=== PATIENT | male | born 1955 | race Caucasian/White ===

== ENCOUNTER 2020-10-26 11:52 | Emergency (ER) | payer SELFPAY ==
[2020-10-26 13:24] VITALS: BP 129/93; PULSE 85; RESP 18; TEMP 36.8; O2SAT 96
--- NOTE | 2020-10-26 13:32 | PC.NURSE ---
Pt requesting to leave at the end of triage process prior to blood being drawn. Pt states I don't have time for this I have to go to work. I am not going to lose my job over this. I just came here to get my belly checked out. I'm not looking to have a psychiatric evaluation. dry cell tester and EDP made aware of what is going on and pts [place] suicide risk assessment. Emily rn first assistant out speaking with pt in triage area at this time.
--- NOTE | 2020-10-26 13:32 | PC.NURSE ---
Spoke with pt about the [place] scale and his risk. States he was honest with his answers and feels like today he is here for just his abd pain. He is not suicidal or homicidal however in the past he has attempted due to his divorce long time ago. He also has decided that he needs to get to work and doesn't want to be seen due to the wait
== END 2020-10-26 13:32 | disposition left against medical advice (07) ==
DX: R10.9 Unspecified abdominal pain (principal)
CPT/HCPCS: 99199

== ENCOUNTER 2020-12-10 14:50 | Emergency (ER) | payer OTHER, SELFPAY ==
[2020-12-10 15:02] VITALS: BP 140/94; PULSE 63; RESP 16; TEMP 37; O2SAT 100
--- NOTE | 2020-12-10 15:08 | ED.EAR ---
HPI - Ear Problem General Chief complaint: Ear Stated complaint: Possible Ear Infection in both Ears Time Seen by Provider: 12/10/20 15:09 Source: patient Mode of arrival: ambulatory Limitations: no limitations History of Present Illness HPI Narrative: Homer Roca is a 65 yo male with who comes with ear stuffiness. Went swimming in the pool 2 weeks ago and states that his ears have been somewhat muffled since then but is gotten continually worse, his right ear is now painful Related Data Home Medications Medication Instructions Recorded Confirmed pantoprazole 40 mg PO DAILY 12/10/20 12/10/20 Allergies Allergy/AdvReac Type Severity Reaction Status Date / Time No Known Allergies Allergy Verified 12/10/20 15:12 Review of Systems Review of Systems: Narrative: CONSTITUTIONAL: Denies fever, chills, sweats. EYES: Denies visual changes, redness, discharge. ENT: Denies rhinorrhea, congestion, sore throat, otalgia. Bilateral ear stuffiness CARDIOVASCULAR: Denies chest pain, palpitations, edema. RESPIRATORY: Denies dyspnea, wheezing, cough GASTROINTESTINAL: Denies abdominal pain, nausea, vomiting, diarrhea. GENITOURINARY: Denies dysuria, hematuria, abnormal discharge SKIN: Denies rash or itching. NEUROLOGIC: Denies numbness, or focal weakness. PSYCHIATRIC: Denies anxiety or depression. PMFSH Past Medical History Medical History HTN (hypertension) Family History Family History Other Heart disease Hypertension Social History Social History (Updated 12/10/20 @ 15:53 by Jie June CNP) Smoking status: Former smoker Alcohol intake: current Comments At time of signature, I agree with nursing past medical, surgical, social and family history. There is no relevant family history pertinent to the presenting complaint. Patient's blood pressure elevated at this visit should follow-up with PCP this week Exam Narrative: Exam Narrative: GENERAL: This is a well-nourished, well-developed patient, in mild distress. HEAD: normocephalic, atraumatic. EYES: Sclera clear/white. Vision is grossly intact. EARS: External ears normal, auditory canals dark wax against TM on right and without drainage, L TM normal without perforation. Hearing grossly intact. NOSE: External nose normal without nasal discharge, nares without redness, no rhinorrhea. THROAT: Mucous membranes moist, NECK: Neck supple, CARDIOVASCULAR: Regular rate and rhythm without murmurs, gallops, or rubs. RESPIRATORY: Clear to auscultation. Breath sounds equal bilaterally. No wheezes, rales, or rhonchi. GASTROINTESTINAL: Abdomen soft, SKIN: warm, intact with no suspicious lesions detected rash, good texture and turgor. NEURO: awake, alert, and oriented to person, place and time. There were no obvious focal neurologic abnormalities. Steady gait EXTREMITIES: Normal range of motion. BACK: Nontender without deformity Course Vital Signs Vital signs: Vital Signs Temperature 98.6 F 12/10/20 15:02 Pulse Rate 63 12/10/20 15:02 Respiratory Rate 16 12/10/20 15:02 Blood Pressure 140/94 H 12/10/20 15:02 Pulse Oximetry 100 12/10/20 15:02 Temperature 98.6 F 12/10/20 15:02 Pulse Rate 63 12/10/20 15:02 Respiratory Rate 16 12/10/20 15:02 Blood Pressure 140/94 H 12/10/20 15:02 Pulse Oximetry 100 12/10/20 15:02 Procedures Ear Wax Removal Right Ear: Ear Wax Removal Date: 12/10/20 Ear Wax Removal Time: 15:24 Cerumenolytic Used: other (peroxide/water) Results: Re-examined: some cerumen remains TM Examination: TM(s) intact, normal appearance Ear Canal Exam: atraumatic Patient Tolerated Procedure: well Technique: ear canal irrigated Medical Decision Making Differential Diagnosis Differential Diagnosis: Otitis media versus otitis externa versus earwax impaction
[2020-12-10] MEDS: ONDANSETRON HCL ODT 4 MG TABLET PO (16:02)
[2020-12-10] MEDS: MECLIZINE HCL 25 MG TABLET PO (16:09)
== END 2020-12-10 16:30 | disposition home or self-care (01) ==
PROVIDERS: Emergency Provider Nurse Practitioner
DX: H60.90 Unspecified otitis externa, unspecified ear (principal); H61.21 Impacted cerumen, right ear; Z87.891 Personal history of nicotine dependence; I10 Essential (primary) hypertension
CPT/HCPCS: 69209; 99213; A9270; G0463

== ENCOUNTER 2021-02-04 10:44 | Emergency (ER) | payer OTHER, SELFPAY ==
[2021-02-04 10:48] VITALS: BP 147/94; PULSE 62; RESP 14; TEMP 37.1; O2SAT 100
--- NOTE | 2021-02-04 11:05 | ED.ABDPAIN ---
HPI - Abdominal Pain General Chief Complaint: Abdominal Pain Stated Complaint: stomach pain Time Seen by Provider: 02/04/21 11:05 Source: patient and RN notes reviewed Mode of arrival: ambulatory Limitations: no limitations History of Present Illness HPI narrative: 65-year-old male presents with concern for pain periumbilical abdominal pain, diarrhea. Reports symptoms have been going on for many months, reports he has been seen by her primary care physician and been prescribed medicine for an ulcer. Reports he ran out of that medication and symptoms returned. He denies any vomiting, reports nausea. Reports diarrhea with one episode of black stool. Reports his primary care doctor ordered tests including a CT of his abdomen which he never got done. Reports he has missed several days of work since the beginning of the year for this problem. He reports decreased appetite, reports eating 1-1/2 big max yesterday without any subsequent vomiting or diarrhea. He denies any [id number] intervention. He denies fever, body aches, general malaise, abdominal tenderness. MD elicited complaint: abdominal pain Related Data Home Medications Medication Instructions Recorded Confirmed pantoprazole 40 mg PO DAILY 12/10/20 02/04/21 Allergies Allergy/AdvReac Type Severity Reaction Status Date / Time No Known Allergies Allergy Verified 02/04/21 10:57 Review of Systems Review of Systems: CONSTITUTIONAL: Denies malaise, chills, sweats, or fever. ENT: Denies rhinorrhea, congestion, sinus pain, otalgia or sore throat. CARDIOVASCULAR: Denies chest pain, palpitations, or edema. RESPIRATORY: Denies cough or dyspnea. GASTROINTESTINAL: Reports periumbilical abdominal pain, nausea, diarrhea, episode of dark-colored blood streaks stool. Denies vomiting mucous stools. GENITOURINARY: Denies dysuria or h SKIN: Denies rash or itching. MUSCULOSKELETAL: Denies myalgia. NEUROLOGIC: Denies headache. All systems reviewed & are unremarkable except as noted in HPI and below PMFSH Past Medical History Medical History HTN (hypertension) Family History Family History Other Heart disease Hypertension Social History Social History (Updated 12/10/20 @ 15:53 by Jie A. Slade, NETWORK ASSOCIATE) Smoking status: Former smoker Alcohol intake: current Comments At time of signature, agree with nursing past medical, surgical, social and family history. There is no relevant family history pertinent to the presenting complaint Exam Narrative: GENERAL: Well-appearing, well-nourished, and in no acute distress. HEAD: Normocephalic, atraumatic. EYES: PERRLA, conjunctivae clear, and EOMI. ENT: Mucous membranes moist. NECK: Supple. No lymphadenopathy CHEST: Speaks in full sentences. No respiratory distress. HEART: Regular rate and rhythm. ABDOMEN: Soft, flat, nondistended, nontender. No guarding, rebound tenderness, or rigid. No pulsatilla masses. Bowel sounds present in all four quadrants. No organomegaly. Negative Fontenot?s sign. No periumbilical tenderness. No Supra public tenderness or distension. SKIN: Warm, dry, no rash. NEURO: Alert and oriented x3. PSYCH: Normal mood and affect Course Course Emergency Course: Discussed limited diagnostic capability at [facility], discussed transfer to emergency department, patient refuses transfer to emergency department at this time. Discussed importance of follow-up with primary care provider for further evaluation of chronic symptoms, discussed reasons to go to the ER. Patient is aware of diagnosis, understands and agrees to treatment plan. Anticipatory guidance given. Patient agrees to follow-up as directed and is aware of reasons to seek care at the emergency department. Portions of this record may have been created with voice recognition software Vital Signs Vital signs: Vital Signs Temperature
== END 2021-02-04 11:30 | disposition home or self-care (01) ==
PROVIDERS: Emergency Provider Nurse Practitioner
DX: R10.33 Periumbilical pain (principal); I10 Essential (primary) hypertension; Z87.891 Personal history of nicotine dependence
CPT/HCPCS: 99213; G0463

== ENCOUNTER 2022-05-13 11:00 | Emergency (ER) | payer MEDICAID, SELFPAY ==
[2022-05-13 11:11] VITALS: BP 147/88; PULSE 77; RESP 16; TEMP 37.6; O2SAT 99
--- NOTE | 2022-05-13 13:08 | PC.NURSE ---
PT WAS TOLD HE WOULD BE SEEN SOON WE COULD. PT STATED PLEASE MAKE IT QUICK. I INSTRUCTED PT IT WOULD BE ABOUT AN HOUR THERE ARE SEVERAL AHEAD OF HIM. PT ASKED IF HE COULD LEAVE AND COME BACK, I TOLD HIM HE WOULD LOOSE HIS PLACE AND WOULD START ALL OVER. PT REPLIED JOLENE BELLO, I JUST WANT SOME GOD DAMN RELIEF. I TOLD PT HE COULD GO OUT AND TELL HIS RIDE AND COME DIRECTLY BACK IN.' PT DID COME DIRECTLY ANDRÉS IN.
--- NOTE | 2022-05-13 13:22 | ED.HA ---
HPI - Headache General Chief Complaint: Headache Stated Complaint: migraine Time Seen by Provider: 05/13/22 13:23 Source: patient, RN notes reviewed and old records reviewed Mode of arrival: ambulatory Limitations: no limitations History of Present Illness HPI Narrative: 66 year old male who presents to [facility] care with complaints of migraine headache which started Sunday afternoon with associated nausea, vomiting, dizziness with some body chills. Patient reports that he has history of migraine cluster type of headaches rates his pain as 10/10, has taken Ibuprofen with no improvement. Patient is angry and belligerent acting but cooperative, is lying on floor of exam room. Patient reports that he does not have PCP and is on no migraine medications for prevention or treatment with medication history reviewed. Patient instructed we have strongest medication for pain here that being Toradol,he states 'he though he could get a shot of Morphine here'. MD elicited complaint: other (reports migraine with nausea) Onset (ago): day(s) (yesterday afternoon) Pain scale (0-10): 10 Treatments prior to arrival: ibuprofen Related Data Allergies Allergy/AdvReac Type Severity Reaction Status Date / Time No Known Allergies Allergy Verified 05/13/22 12:48 Review of Systems Review of Systems: CONSTITUTIONAL: Denies fever,some chills, or sweats. EYES: Denies visual changes, redness, or discharge. ENT: Denies rhinorrhea, congestion, sore throat, or otalgia. CARDIOVASCULAR: Denies chest pain, palpitations, or edema. RESPIRATORY: Denies cough or dyspnea. GASTROINTESTINAL: Denies abdominal pain,reports nausea, vomiting, no diarrhea. GENITOURINARY: Denies dysuria or hematuria. SKIN: Denies rash or itching. MUSCULOSKELETAL: Denies back pain, joint pain, or myalgia. NEUROLOGIC: Reports diffuse headache, no numbness, or weakness, states some dizziness. PSYCHIATRIC: Denies anxiety or depression All systems reviewed & are unremarkable except as noted in HPI and below PMFSH Past Medical History Medical History (Updated 05/18/22 @ 12:21 by Keke White NP) HTN (hypertension) Hx of migraines Surgical History Surgical History (Updated 05/18/22 @ 12:22 by Keke White NP) H/O shoulder surgery right Family History Family History Other Heart disease Hypertension Social History Social History (Updated 05/18/22 @ 12:22 by Keke White NP) Smoking status: Former smoker Alcohol intake: current Substance use type: marijuana Gender identity (if verbalized by the patient): Male Comments At time of signature, agree with nursing past medical, surgical, social and family history. There is no relevant family history pertinent to the presenting complaint Exam Narrative: GENERAL: Well-appearing, well-nourished, and in no acute distress. HEAD: Normocephalic, atraumatic. EYES: PERRLA and EOMI.no nystagmus ENT: Nares clear, no rhinorrhea or epistaxis. Mucous membranes moist.TM's normal with no redness, throat pink with no lesions or swelling NECK: Supple. no lymphadenopathy, no nuchal rigidity CHEST: Clear to auscultation. No respiratory distress.SAO2 99% on room air HEART: Regular rate and rhythm. No murmur heard. Normal peripheral pulses. ABDOMEN: Soft, nontender, nondistended, normal active bowel sounds. EXTREMITIES: Normal range of motion. No edema. SKIN: Warm, dry, no rash. NEURO: No focal deficits. Alert and oriented x3.cranial nerves intact with no abnormality noted, moves all extremities on own power, diffuse reported headache pain. Course Course Emergency Course: Patient is aware of diagnosis, understands and agrees to treatment plan.? Anticipatory guidance given.? Patient agrees to follow-up as directed and is aware of reasons to seek care at the emergency department. Portions of this record may have been created with voice recognition software Level of Care: Express
== END 2022-05-13 13:48 | disposition home or self-care (01) ==
PROVIDERS: Emergency Provider Registered Nurse
DX: G43.909 Migraine, unspecified, not intractable, without status migrainosus (principal); Z87.891 Personal history of nicotine dependence; F12.90 Cannabis use, unspecified, uncomplicated; I10 Essential (primary) hypertension
CPT/HCPCS: 87804; 99213; G0463

== ENCOUNTER 2023-08-22 10:02 | Outpatient (CLI) | payer MEDICARE, SELFPAY ==
[2023-08-22 18:39] LABS: Hematocrit 46.2 % (42.0-52.0); Mean Corpuscular HGB Conc 32.5 g/dl (32-36); Mean Corpuscular Hemoglobin 32.4 pg (26-34); Mean Corpuscular Volume 99.8 fl (80-100); Mean Platelet Volume 10.5 fl (7.4-10.4); Platelet Count Result 319 k/mm3 (150-375); Red Blood Count 4.63 M/mm3 (4.6-6.20); Red Cell Distribution Width 12.7 % (11.5-14.5); White Blood Count 8.9 K/mm3 (4.5-10.0)
[2023-08-22 20:23] LABS: Alanine Aminotransferase 20 U/L (6-50); Albumin Level 4.6 g/dL (3.5-5.1); Alkaline Phosphatase 88 U/L (38-126); Anion Gap 8 mmol/L (8-16); Aspartate Amino Transferase 64 U/L (17-59); Bilirubin,Total 0.4 mg/dL (0.2-1.3); Blood Urea Nitrogen 15 mg/dL (9-20); Carbon Dioxide 28 mmol/L (22-30); Chloride 102 mmol/L (98-107); Cholesterol 212 mg/dL (0-200); Estimated Glomerular Filt Rate > 60; Glucose 71 mg/dL (65-110); HDL Direct 38 mg/dL; Potassium 4.5 mmol/L (3.4-5.0); Sodium 138 mmol/L (137-145); Triglycerides 98 mg/dL (<150)
[2023-08-22 20:33] LABS: LDL Cholesterol Direct 148 mg/dL
[2023-08-22 20:56] LABS: Prostate Specific Antigen 1.7 ng/mL (< OR = 4.0)
[2023-08-22 21:32] LABS: Folic Acid 4.1 ng/mL (2.76->20)
== END 2023-08-22 10:03 | disposition home or self-care (01) ==
PROVIDERS: PCP Nurse Practitioner Adult Health; Visit Provider Nurse Practitioner Adult Health
DX: Z12.5 Encounter for screening for malignant neoplasm of prostate (principal); R03.0 Elevated blood-pressure reading, without diagnosis of hypertension; Z13.220 Encounter for screening for lipoid disorders; Z13.6 Encounter for screening for cardiovascular disorders; Z82.49 Family history of ischemic heart disease and other diseases of the circulatory system
CPT/HCPCS: 36415; 80053; 80061; 82607; 82746; 84153; 84443; 85027; G0103